=== PATIENT | female | born 1955 | race African-American/Black ===

== ENCOUNTER 2018-05-09 14:50 | Inpatient (IN) | payer BC ==
[2018-05-09 15:34] LABS: POC GLUCOSE 101 mg/dL (70-99)
[2018-05-09] MEDS: IV NORMAL SALINE 1000ML BAG 1,000 ML IV ×2 (15:45→21:12)
[2018-05-09 16:29] LABS: ADD MAN DIFF? NO
[2018-05-09 16:39] LABS: BASO % 0 % (0-3); EOS # 0.1 x10^3/uL (0.0-0.7); EOS % 2 % (0-3); HEMATOCRIT 38.6 % (36.0-47.0); HEMOGLOBIN 12.7 g/dL (12.0-15.5); LYMPH # 2.5 x10^3/uL (1.0-4.8); LYMPH % 45 % (24-48); MEAN CORPUSCULAR HEMOGLOBIN 30 pg (25-35); MEAN CORPUSCULAR HGB CONC 33 g/dL (31-37); MEAN CORPUSCULAR VOLUME 91 fL (79-100); MONO # 0.5 x10^3/uL (0.0-1.1); MONO % 9 % (0-9); NEUT # 2.4 x10^3uL (1.8-7.7); NEUT % 44 % (31-73); PLATELET COUNT 224 x10^3/uL (140-400); RED BLOOD COUNT 4.27 x10^6/uL (3.50-5.40); RED CELL DISTRIBUTION WIDTH 14.2 % (11.5-14.5); WHITE BLOOD COUNT 5.5 x10^3/uL (4.0-11.0)
[2018-05-09 16:43] LABS: ANION GAP 5 (6-14); BLOOD UREA NITROGEN 18 mg/dL (7-20); BUN/CREATININE RATIO 26 (6-20); CALCIUM 8.4 mg/dL (8.5-10.1); CARBON DIOXIDE 32 mmol/L (21-32); CHLORIDE 105 mmol/L (98-107); CREATININE 0.7 mg/dL (0.6-1.0); GFR 101.9; GLUCOSE 96 mg/dL (70-99); POTASSIUM 3.8 mmol/L (3.5-5.1); SODIUM 142 mmol/L (136-145)
[2018-05-09 16:47] LABS: ALBUMIN 3.4 g/dL (3.4-5.0); ALBUMIN/GLOBULIN RATIO 1.1 (1.0-1.7); ALK PHOS 83 U/L (46-116); ALT (SGPT) 22 U/L (14-59); AST (SGOT) 20 U/L (15-37); LIPASE 201 U/L (73-393); MAGNESIUM 2.1 mg/dL (1.8-2.4); TOTAL BILIRUBIN 0.4 mg/dL (0.2-1.0); TOTAL PROTEIN 6.5 g/dL (6.4-8.2)
[2018-05-09 16:49] LABS: LACTIC ACID 0.8 mmol/L (0.4-2.0)
[2018-05-09 16:51] LABS: TROPONINI < 0.017 ng/mL (0.000-0.055)
[2018-05-09 16:55] LABS: CKMB INDEX 0.6 % (0-4); CKMB MASS 2.2 ng/mL (0.0-3.6); CREATINE KINASE 339 U/L (26-192)
[2018-05-09] MEDS: FAMOTIDINE 20 MG TABLET. PO (17:58)
[2018-05-09 18:19] LABS: BILIRUBIN,URINE NEGATIVE (NEG); CLARITY,URINE CLEAR; COLOR,URINE YELLOW; GLUCOSE,URINE NEGATIVE (NEG); NITRITE,URINE NEGATIVE (NEG); PROTEIN,URINE NEGATIVE (NEG-TRACE)
[2018-05-09 18:31] LABS: BACTERIA,URINE 0 /HPF (0-FEW); RBC,URINE 0 /HPF (0-2); SQUAMOUS EPITHELIAL CELL,UR FEW /LPF; WBC,URINE 0 /HPF (0-4)
[2018-05-09] MEDS: ONDANSETRON ODT 4 MG TAB.RAPDIS. PO (18:44)
[2018-05-09] MEDS: ASPIRIN ENTERIC COATED 325 MG TABLET.DR. PO (18:44)
[2018-05-09] MEDS: KETOROLAC 30 MG/ML INJ. IV (21:12)
[2018-05-09 21:59] LABS: TROPONINI < 0.017 ng/mL (0.000-0.055)
[2018-05-10 01:49] LABS: TROPONINI < 0.017 ng/mL (0.000-0.055)
[2018-05-10] MEDS: KETOROLAC 30 MG/ML INJ. IV (08:50)
[2018-05-10 10:33] LABS: CREATINE KINASE 261 U/L (26-192)
[2018-05-10] MEDS: IV NORMAL SALINE 1000ML BAG 1,000 ML IV (10:35)
== END 2018-05-10 15:37 | disposition home or self-care (01) | DRG 558 ==
LOC: ER 14:50 → 2 SOUTH 18:45
PROVIDERS: Internal Medicine
DX: M62.82 Rhabdomyolysis (principal); T67.5XXA Heat exhaustion, unspecified, initial encounter; I69.344 Monoplegia of lower limb following cerebral infarction affecting left non-dominant side; J44.9 Chronic obstructive pulmonary disease, unspecified; E86.0 Dehydration; E83.51 Hypocalcemia; R26.9 Unspecified abnormalities of gait and mobility; X30.XXXA Exposure to excessive natural heat, initial encounter; Y93.89 Activity, other specified; Y92.89 Other specified places as the place of occurrence of the external cause; Y99.8 Other external cause status; Z82.49 Family history of ischemic heart disease and other diseases of the circulatory system; Z90.710 Acquired absence of both cervix and uterus; Z87.891 Personal history of nicotine dependence; Z88.6 Allergy status to analgesic agent
CPT/HCPCS: 36415; 70450; 71046; 80053; 81001; 82550; 82553; 82962; 83605; 83690; 83735; 84484; 85025; 93005; 96360; 99285; 99285-25; J1885; J7030; Q0162

== ENCOUNTER → 2018-10-18 | Outpatient (CLI) | payer SELFPAY ==
[2018-05-10 11:00] VITALS: BP 131/59
[~2018-10-18] MED LIST: KETO10TA PO
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
== END | disposition home or self-care (01) ==
LOC: RAD 09:23
PROVIDERS: ATTEND Nurse Practitioner
DX: M47.816 Spondylosis without myelopathy or radiculopathy, lumbar region (principal); M47.817 Spondylosis without myelopathy or radiculopathy, lumbosacral region; M41.86 Other forms of scoliosis, lumbar region; M48.061 Spinal stenosis, lumbar region without neurogenic claudication; M12.88 Other specific arthropathies, not elsewhere classified, other specified site
CPT/HCPCS: 72100

== ENCOUNTER 2021-03-15 22:49 | Emergency (ER) | payer MEDICARE, OTHER ==
[~2021-03-15] VITALS: Ht 165.1 cm; Wt 77.2 kg
--- NOTE | 2021-03-16 02:41 | PHYS DOC ---
Past Medical History Past Medical History: COPD, CVA, Migraines Past Surgical History: Hysterectomy Additional Past Surgical Histo: RIGHT KNEE ARTHROSCOPY, BILAT ROTATOR CUFF REP AIR, RIGHT CARPAL TUNNEL Smoking Status: Current Every Day Smoker Alcohol Use: None Drug Use: None General Adult EDM: Chief Complaint: FACE PROBLEM HPI: HPI: Patient is a 65yo female presenting for skin problems. Patient reports x1 week f acial skin problems. Reports a "blackhead" that formed 1 week prior without known inciting event or trauma. Nothing known makes better or worse. Patient has tried topical triple antibiotic ointment without relief. There is no pain. Presents due to fear of "it getting into my eye". No lightheadedness, dizziness, vision changes or other concerning findings. Review of Systems: Review of Systems: Fourteen body systems of review of systems have been reviewed. See HPI for pertinent positives and negative responses, other zapien all other systems are negative, non-pertinent or non-contributory Heart Score: C/O Chest Pain: No Risk Factors: Risk Factors: DM, Current or recent (<one month) smoker, HTN, HLP, family history of CAD, obesity. Risk Scores: Score 0 - 3: 2.5% MACE over next 6 weeks - Discharge Home Score 4 - 6: 20.3% MACE over next 6 weeks - Admit for Clinical Observation Score 7 - 10: 72.7% MACE over next 6 weeks - Early Invasive Strategies Allergies: Allergies: Allergies Coded Allergies Type Severity Reaction Last Updated Verified aspirin Adverse Reaction Unknown NAUSEA 03/16/21 Yes Physical Exam: PE: Constitutional: Well developed, well nourished, no acute distress, non-toxic appearance. HENT: Normocephalic, atraumatic, bilateral external ears normal, oropharynx moist, no oral exudates, nose normal. Well-appearing comedone/blackhead present in-between eyebrows. Minimal expressible exudate expressed likely indicating early stages of disease without any other concerning signs of potential infection Eyes: PERRLA, EOMI, conjunctiva normal, no discharge. Neck: Normal range of motion, no tenderness, supple, no stridor. Cardiovascular: Heart rate regular, sinus rhythm, no murmurs rubs or gallops Lungs & Thorax: Bilateral breath sounds clear to auscultation Abdomen: Bowel sounds normal, soft, no tenderness, no masses, no pulsatile masses. Nonsurgical abdomen, no peritoneal signs Skin: Warm, dry, no erythema, no rash. Back: No tenderness, no CVA tenderness. Extremities: No tenderness, no cyanosis, no clubbing, ROM intact, no edema. Neurologic: Alert and oriented X 3, CN 2-12 intact, normal motor & sensory function, no focal deficits noted. Psychologic: Affect normal, judgement normal, mood normal. Current Patient Data: Vital Signs: Vital Signs Date Time Temp Pulse Resp B/P (MAP) Pulse Ox O2 Delivery O2 Flow Rate FiO2 03/15/21 22:53 97.8 105 18 143/74 (97) 95 Room Air 97.8 EKG: EKG: [] Radiology/Procedures: Radiology/Procedures: [] Course & Med Decision Making: Course & Med Decision Making VSS, HPI and PE unremarkable. Discussed most likely diagnosis of comedone. I tried expressing this but likely too early in disease to fully express. In a sensitive area, no indication for invasive removal or surgical incision etc Advised continued supportive care and PCP with potential need for dermatology follow-up. This is not an emergency. Strict return precautions discussed with good understanding by patient. Dragon Disclaimer: Dragon Disclaimer: This electronic medical record was generated, in whole or in part, using a voice recognition dictation system. Departure Departure Impression: Primary Impression: Comedone Disposition: 01 HOME / SELF CARE / HOMELESS Condition: STABLE Referrals: GURINDER WREN MD (PCP) Additional Instructions: As discussed, your vitals and physical exam were unremarkable for any emergent or surgical issues. As disclose, your most likely diagnosis is a symptomatic comedone. This is otherwise referred to as a blackhead. I attempted to aspirate/extract this but was unsuccessful. It is likely too early in its disease course to have been expelled without aggressive intervention. As such, it was recommended that you continue supportive care practices such as good facial hygiene cleaning face with soap at least once or twice a day and applying warm compresses to area in question at least once or twice a day. As discussed, it is advised that you seek close primary care physician reevaluation to ensure symptomatic improvement. If these do not improve, there might be indication for dermatology referral. If any concerning signs or symptoms present prior to outpatient follow-up please do not hesitate to come back for repeat evaluation. It was a pleasure to take care of you and I wish you the best going forward LULA PRINGLE DO March 16, 2021 02:41
[2021-03-16 02:44] VITALS: BP 152/98
== END 2021-03-16 02:57 | disposition home or self-care (01) ==
LOC: ER 22:49
DX: L98.8 Other specified disorders of the skin and subcutaneous tissue (principal); J44.9 Chronic obstructive pulmonary disease, unspecified; G43.909 Migraine, unspecified, not intractable, without status migrainosus; F17.200 Nicotine dependence, unspecified, uncomplicated; Z86.73 Personal history of transient ischemic attack (TIA), and cerebral infarction without residual deficits; Z88.6 Allergy status to analgesic agent
CPT/HCPCS: 99281

== ENCOUNTER 2022-03-08 21:30 | Inpatient (IN) | payer MEDICARE ==
[~2022-03-08] VITALS: Ht 165.1 cm; Wt 72.7 kg
[~2022-03-08 21:30] MED LIST changes: +ASPI-886 PO; +ATOR40TA59 PO; +CARV3.1210 PO; +CYCL10TA19 PO; +DICY10CA3 PO; +Diclofenac Sodium TP; +HYDR-3070 PO; +HYDR12.58 PO; +METF-658 PO; +OMEP10CA4 PO; +VALIUM10 MG PO
[2022-03-08] MEDS ORDERED: methylPREDNISolone SOD SUCC PF 125 MG/2 ML VIAL. IV ONE (21:45)
[2022-03-08] MEDS ORDERED: IPRATRPIUM/ALBUTEROL 0.5/2.5MG 3 ML NEBU. NEB ONE (21:45)
[2022-03-08 21:57] LABS: BASO % 0 % (0-3); EOS % 0 % (0-3); HEMATOCRIT 34.7 % (36.0-47.0); HEMOGLOBIN 11.5 g/dL (12.0-15.5); LYMPH # 0.6 x10^3/uL (1.0-4.8); LYMPH % 9 % (24-48); MEAN CORPUSCULAR HEMOGLOBIN 29 pg (25-35); MEAN CORPUSCULAR HGB CONC 33 g/dL (31-37); MEAN CORPUSCULAR VOLUME 87 fL (79-100); MONO # 0.2 x10^3/uL (0.0-1.1); MONO % 3 % (0-9); NEUT # 6.5 x10^3/uL (1.8-7.7); NEUT % 88 % (31-73); PLATELET COUNT 165 x10^3/uL (140-400); RED CELL DISTRIBUTION WIDTH 13.8 % (11.5-14.5); WHITE BLOOD COUNT 7.4 x10^3/uL (4.0-11.0)
--- NOTE | 2022-03-08 22:00 | PHYS DOC ---
Past Medical History Past Medical History: COPD, CVA, Migraines Past Surgical History: Other Additional Past Surgical Histo: MULTIPLE WORK RELATED ORTHO SX Smoking Status: Current Every Day Smoker Alcohol Use: None Drug Use: None Adult General Chief Complaint Chief Complaint: SHORTNESS OF BREATH HPI HPI Patient is a 66 year old female presenting to the emergency department for evaluation of shortness of breath that has been worsening over the past several days. Patient does smoke cigarettes on a regular basis and has been diagnosed with COPD and says that she has had a brownish productive sputum and has had subjective fevers as well. She denies any pain nausea vomiting or other systemic symptoms. She does feel generally weak and tired. She is not on any antibiotics or steroids at this time. She appears to be dyspneic but nontoxic. Reportedly her oxygen saturation was 87% on room air for EMS but they did not give her any breathing treatments or steroids. Review of Systems Review of Systems Constitutional: + fever, chills [] Eyes: Denies change in visual acuity, redness, or eye pain [] HENT: Denies nasal congestion or sore throat [] Respiratory: + cough, shortness of breath [] Cardiovascular: No additional information not addressed in HPI [] GI: Denies abdominal pain, nausea, vomiting, bloody stools or diarrhea [] : Denies dysuria or hematuria [] Musculoskeletal: Denies back pain or joint pain [] Integument: Denies rash or skin lesions [] Neurologic: Denies headache, focal weakness or sensory changes [] All other systems were reviewed and found to be within normal limits, except as documented in this note. Current Medications Current Medications Current Medications Medications (Trade) Dose Ordered Sig/Jd Start Time Stop Time Status Last Admin Dose Admin Albuterol/ Ipratropium (Duoneb) 3 ml 1X ONCE 03/08/22 21:45 03/08/22 21:46 DC 03/08/22 22:04 3 ML Azithromycin 500 mg/Sodium Chloride 250 ml @ 250 mls/hr ONCE ONCE 03/08/22 22:30 03/08/22 23:29 Ceftriaxone Sodium (Rocephin) 2 gm 1X ONCE 03/08/22 22:15 03/08/22 22:16 DC Methylprednisolone Sodium Succinate (SOLU-Medrol 125MG VIAL) 125 mg 1X ONCE 03/08/22 21:45 03/08/22 21:46 DC 03/08/22 21:59 125 MG Ondansetron HCl (Zofran) 4 mg PRN Q8HRS PRN 03/08/22 22:30 03/09/22 22:29 Potassium Chloride/Sodium Chloride 1,000 ml @ 125 mls/hr Q8H ONCE 03/08/22 22:30 03/09/22 06:29 UNV Potassium Chloride (Klor-Con) 40 meq 1X ONCE 03/08/22 22:30 03/08/22 22:31 UNV Allergies Allergies Allergies Coded Allergies Type Severity Reaction Last Updated Verified No Known Drug Allergies 08/17/21 No Physical Exam Physical Exam Constitutional: Well developed, well nourished, no acute distress, non-toxic appearance. [] HENT: Normocephalic, atraumatic, bilateral external ears normal, oropharynx moist, no oral exudates, nose normal. [] Eyes: PERRLA, EOMI, conjunctiva normal, no discharge. [] Neck: Normal range of motion, no tenderness, supple, no stridor. [] Cardiovascular:Heart rate tachycardic with regular rhythm, no murmur [] Lungs & Thorax: Bilateral breath sounds diminished with inspiratory expiratory wheezing Abdomen: Bowel sounds normal, soft, no tenderness, no masses, no pulsatile masses. [] Skin: Warm, dry, no erythema, no rash. [] Back: No tenderness, no CVA tenderness. [] Extremities: No tenderness, no cyanosis, no clubbing, ROM intact, no edema. [] Neurologic: Alert and oriented X 3, normal motor function, normal sensory function, no focal deficits noted. [] Current Patient Data Vital Signs Vital Signs Date Time Temp Pulse Resp B/P (MAP) Pulse Ox O2 Delivery O2 Flow Rate FiO2 03/08/22 22:04 95 Nasal Cannula 2.0 03/08/22 21:30 99.1 128 35 138/61 (86) 99.1 Lab Values Laboratory Tests Test 03/08/22 21:45 White Blood Count 7.4 x10^3/uL (4.0-11.0) Red Blood Count 4.00 x10^6/uL (3.50-5.40) Hemoglobin 11.5 g/dL (12.0-15.5) L Hematocrit 34.7 % (36.0-47.0) L Mean Corpuscular Volume 87 fL (79-100) Mean Corpuscular Hemoglobin 29 pg (25-35) Mean Corpuscular Hemoglobin Concent 33 g/dL (31-37) Red Cell Distribution Width 13.8 % (11.5-14.5) Platelet Count 165 x10^3/uL (140-400) Neutrophils (%) (Auto) 88 % (31-73) H Lymphocytes (%) (Auto) 9 % (24-48) L Monocytes (%) (Auto) 3 % (0-9) Eosinophils (%) (Auto) 0 % (0-3) Basophils (%) (Auto) 0 % (0-3) Neutrophils # (Auto) 6.5 x10^3/uL (1.8-7.7) Lymphocytes # (Auto) 0.6 x10^3/uL (1.0-4.8) L Monocytes # (Auto) 0.2 x10^3/uL (0.0-1.1) Eosinophils # (Auto) 0.0 x10^3/uL (0.0-0.7) Basophils # (Auto) 0.0 x10^3/uL (0.0-0.2) Platelet Estimate Pending Sodium Level 137 mmol/L (136-145) Potassium Level 2.8 mmol/L (3.5-5.1) *L Chloride Level 98 mmol/L (98-107) Carbon Dioxide Level 28 mmol/L (21-32) Anion Gap 11 (6-14) Blood Urea Nitrogen 31 mg/dL (7-20) H Creatinine 1.1 mg/dL (0.6-1.0) H Estimated GFR (Cockcroft-Gault) 59.8 BUN/Creatinine Ratio 28 (6-20) H Glucose Level 120 mg/dL (70-99) H Lactic Acid Level 1.3 mmol/L (0.4-2.0) Calcium Level 8.7 mg/dL (8.5-10.1) Total Bilirubin 1.1 mg/dL (0.2-1.0) H Aspartate Amino Transferase (AST) 21 U/L (15-37) Alanine Aminotransferase (ALT) 22 U/L (14-59) Alkaline Phosphatase 79 U/L (46-116) Troponin I High Sensitivity 54 ng/L (4-50) H TC-Exu-S-Type Natriuretic Peptide 328 pg/mL (0-124) H Total Protein 7.2 g/dL (6.4-8.2) Albumin 2.7 g/dL (3.4-5.0) L Albumin/Globulin Ratio 0.6 (1.0-1.7) L Laboratory Tests 03/08/22 21:45 Laboratory Tests 03/08/22 21:45 EKG EKG Sinus tachycardia at 130 bpm with normal axis no deviation no ST elevation or depression with normal T waves. Radiology/Procedures Radiology/Procedures [] Course & Med Decision Making Course & Med Decision Making Patient appears to have a dense lobar pneumonia in the right lower lobe of her lung. She does meet sepsis criteria with tachycardia and tachypnea but she did appear to improve after breathing treatments and steroids. She is on 2 L of oxygen with a saturation in the mid 90s. Patient has been started on antibi otics for community-acquired pneumonia. Given her sepsis diagnosis and her presenting symptoms and abnormal vital signs she will be admitted to the hospital in guarded condition. She does not meet severe sepsis criteria as she has a MAP above 65. Dragon Disclaimer Dragon Disclaimer This electronic medical record was generated, in whole or in part, using a voice recognition dictation system. Departure Departure Impression: Primary Impression: Respiratory failure with hypoxia Additional Impressions: Hypokalemia Pneumonia Sepsis Disposition: ADMITTED INPATIENT Admitting Physician: JEANNETTE BECERRA) Condition: GUARDED Referrals: GURINDER WREN MD (PCP) Problem Qualifiers Primary Impression: Respiratory failure with hypoxia Chronicity: acute Qualified Codes: J96.01 - Acute respiratory failure with hypoxia Additional Impressions: Pneumonia Pneumonia type: due to unspecified organism Laterality: right Lung location: lower lobe of lung Qualified Codes: J18.9 - Pneumonia, unspecified organism MEL GARNICA DO March 08, 2022 22:00
[2022-03-08] MEDS ORDERED: cefTRIAXone IV Push 2 GM VIAL. IVP ONE (22:15)
[2022-03-08 22:20] LABS: ALBUMIN 2.7 g/dL (3.4-5.0); ALBUMIN/GLOBULIN RATIO 0.6 (1.0-1.7); CALCIUM 8.7 mg/dL (8.5-10.1); CREATININE 1.1 mg/dL (0.6-1.0); GFR 59.8; TOTAL BILIRUBIN 1.1 mg/dL (0.2-1.0); TOTAL PROTEIN 7.2 g/dL (6.4-8.2)
[2022-03-08 22:23] LABS: POTASSIUM 2.8 mmol/L (3.5-5.1)
[2022-03-08] MEDS ORDERED: POTASSIUM CHLORIDE 20 MEQ TABLET.ER. PO ONE (22:30)
[2022-03-08] MEDS ORDERED: ONDANSETRON PF 4 MG/2 ML VIAL. IVP PRN (22:30)
[2022-03-08] MEDS ORDERED: AZITHROMYCIN 500 MG in IV NORMAL SALINE 250ML 250 ML IV ONE (22:30)
[2022-03-08] MEDS ORDERED: POTASSIUM CL 40MEQ IN 0.9%NACL 1,000 ML IV ONE (22:45)
[2022-03-08 22:54] LABS: % BANDS 7 % (0-9); % LYMPHS 10 % (24-48); % MONOS 5 % (0-10); % SEGS 78 % (35-66); PLT ESTIMATE ADEQUATE (ADEQUATE); TOXIC GRANULATION SLIGHT; TOXIC VACUOLATION SLIGHT
--- NOTE | 2022-03-08 23:14 | RAD ---
EXAM: AP View of the chest DATE: 03/08/2022 10:01 PM INDICATION: Reason: cough, soa / Spl. Instructions: / History: COMPARISON: 08/17/2021 FINDINGS: The heart is not enlarged. Mediastinal and hilar contours are normal. Dense airspace opacities right lower lung likely consolidative process such as pneumonia. No pleural effusion or pneumothorax. IMPRESSION: Dense airspace opacities right lower lung likely consolidative process such as pneumonia. Electronically signed by: Ritesh Devi MD (03/08/2022 11:11 PM) MARTHA
[2022-03-08 23:40] LABS: INFLUENZA A PATIENT NEGATIVE (NEGATIVE); INFLUENZA B PATIENT NEGATIVE (NEGATIVE)
--- NOTE | 2022-03-09 01:31 | EKG ---
[facility] [address] [place] [address] Test Date: 2022-03-08 Test Time: 21:42:03 Pat Name: GRISELDA KENNEY Department: Room: [facility] Gender: F [employer] Research Specialist: [id number] : 1955 Requested By: MEL GARNICA Order Number: [id number] Reading MD: Ankit Gonzalez Measurements Intervals [place] Rate: 130 P: [place]: QRS: 154 QRSD: 90 T: -90 QT: 344 QTc: 513 Interpretive Statements SINUS TACHYCARDIA VENTRICULAR PREMATURE COMPLEX(ES) Electronically Signed On 03-10-2022 14:49:24 CDT by Ankit Gonzalez
[2022-03-09 03:00] VITALS: BP 115/64
[2022-03-09 07:00] VITALS: BP 95/52
[2022-03-09 07:30] LABS: BASO % 0 % (0-3); EOS % 0 % (0-3); HEMATOCRIT 33.2 % (36.0-47.0); LYMPH # 0.5 x10^3/uL (1.0-4.8); LYMPH % 7 % (24-48); MEAN CORPUSCULAR HEMOGLOBIN 29 pg (25-35); MEAN CORPUSCULAR HGB CONC 33 g/dL (31-37); MEAN CORPUSCULAR VOLUME 87 fL (79-100); MONO # 0.3 x10^3/uL (0.0-1.1); MONO % 4 % (0-9); NEUT # 6.6 x10^3/uL (1.8-7.7); NEUT % 89 % (31-73); PLATELET COUNT 161 x10^3/uL (140-400); RED BLOOD COUNT 3.82 x10^6/uL (3.50-5.40); RED CELL DISTRIBUTION WIDTH 14.2 % (11.5-14.5); WHITE BLOOD COUNT 7.4 x10^3/uL (4.0-11.0)
[2022-03-09 07:50] LABS: CALCIUM 8.1 mg/dL (8.5-10.1); CREATININE 0.8 mg/dL (0.6-1.0); GFR 86.3; POTASSIUM 4.1 mmol/L (3.5-5.1)
[2022-03-09] MEDS ORDERED: AZITHROMYCIN 500 MG in IV NORMAL SALINE 250ML 250 ML IV SCH (08:15)
[2022-03-09] MEDS ORDERED: diphenhydrAMINE HCL 25 MG CAPSULE PO PRN ×2 (08:15)
[2022-03-09] MEDS ORDERED: ONDANSETRON PF 4 MG/2 ML VIAL. IVP PRN (08:15)
[2022-03-09] MEDS ORDERED: DOCUSATE SODIUM 100 MG CAPSULE. PO PRN (08:15)
[2022-03-09] MEDS ORDERED: DEXTROSE 50% 25 GM / 50ML DISP.SYRIN. IV PRN (08:15)
[2022-03-09] MEDS ORDERED: SENNOSIDES 8.6 MG TABLET PO PRN (08:15)
[2022-03-09] MEDS ORDERED: diphenhydrAMINE 50 MG/ML VIAL IVP PRN (08:15)
[2022-03-09] MEDS ORDERED: ZOLPIDEM 5 MG TABLET. PO PRN (08:15)
[2022-03-09] MEDS ORDERED: LORazepam 0.5 MG TABLET PO PRN (08:15)
[2022-03-09] MEDS ORDERED: PROCHLORPERAZINE 10 MG/2 ML VIAL. IV PRN (08:15)
--- NOTE | 2022-03-09 08:16 | PDOC1 ---
History and Physical Date of Service: DOS: DATE: 03/09/22 TIME: 08:08 Chief Complaint: Chief Complain: Shortness of breath History of Present Illness: HPI: 66-year-old female with past medical history of COPD, CVA and migraines who comes in with shortness of breath that has been worsening for the past several days. Patient does smoke regularly at about a pack per day but she decreased to about 2 cigarettes/day and was not unable to tolerate her cigarettes anymore because she was having shortness of breath and productive cough. She does endorse brownish phlegm. Denies any nausea vomiting, fevers, chest pain, abdominal pain, nausea vomiting, dysuria, hematuria. Endorses generalized weakness and fatigue. She does not appear toxic but she does have short of breath while talking. Patient reportedly was found to have 87% when EMS arrived. She was not giving any steroids or treatments at the time. Past Medical/Surgical History: PMH/PSH: Past Medical History: COPD, CVA, Migraines Past Surgical History: MULTIPLE WORK RELATED ORTHO SX Allergies: Allergies: Coded Allergies: No Known Drug Allergies (Unverified , 08/17/21) Family History: Family History: Reviewed with no relative findings in the chart Social History: Social History: Smoking Status: Current Every Day Smoker Alcohol Use: None Drug Use: None Current Medications: Current Medications Current Medications Albuterol/ Ipratropium (Duoneb) 3 ml 1X ONCE NEB Last administered on 03/08/22at 22:04; Start 03/08/22 at 21:45; Stop 03/08/22 at 21:46; Status DC Methylprednisolone Sodium Succinate (SOLU-Medrol 125MG VIAL) 125 mg 1X ONCE IV Last administered on 03/08/22at 21:59; Start 03/08/22 at 21:45; Stop 03/08/22 at 21:46; Status DC Ceftriaxone Sodium (Rocephin) 2 gm 1X ONCE IVP Last administered on 03/08/22at 22:52; Start 03/08/22 at 22:15; Stop 03/08/22 at 22:16; Status DC Azithromycin 500 mg/Sodium Chloride 250 ml @ 250 mls/hr QHS IV ; Start 03/09/22 at 21:00 Azithromycin 500 mg/Sodium Chloride 250 ml @ 250 mls/hr ONCE ONCE IV Last administered on 03/08/22at 23:00; Start 03/08/22 at 22:30; Stop 03/08/22 at 23:29; Status DC Ondansetron HCl (Zofran) 4 mg PRN Q8HRS PRN IVP NAUSEA/VOMITING; Start 03/08/22 at 22:30; Stop 03/09/22 at 22:29 Potassium Chloride (Klor-Con) 40 meq 1X ONCE PO Last administered on 03/08/22at 23:06; Start 03/08/22 at 22:30; Stop 03/08/22 at 22:31; Status DC Potassium Chloride/Sodium Chloride 1,000 ml @ 125 mls/hr Q8H ONCE IV Last administered on 03/08/22at 23:12; Start 03/08/22 at 22:45; Stop 03/09/22 at 06:44; Status DC Active Scripts Active [Diclofenac Sodium] 100 GM Gel..gram. 1 King TP BID 14 Days Carvedilol (Carvedilol) 3.125 Mg Tablet 3.125 Mg PO BIDWMEALS 30 Days Aspirin Ec (Aspirin) 81 Mg Tablet. 81 Mg PO DAILYWBKFT 30 Days Reported Omeprazole 10 Mg Capsule. 10 Mg PO DAILY Cyclobenzaprine Hcl 10 Mg Tablet 1 Tab PO PRN BID PRN Dicyclomine Hcl 10 Mg Capsule 1 Cap PO PRN Q6HRS Atorvastatin Calcium 40 Mg Tablet 1 Tab PO DAILY Hydrochlorothiazide Tablet (Hydrochlorothiazide) 12.5 Mg Tablet 12.5 Mg PO DAILY Hydrocodone-Apap 7.5-300 (Hydrocodone Bit/Acetaminophen) 1 Each Tablet 1 Tab PO PRN TID PRN MDD 3 Tablet(s) 30 Days Metformin Hcl Er (Metformin Hcl) 500 Mg Tab.er.24h 500 Mg PO DAILYWBKFT ROS: Review of Systems Review of System REVIEW OF SYSTEMS: GENERAL: Denies weakness SKIN: No bruising, hair changes or rashes. EYES: No blurred, double or loss of vision. NOSE AND THROAT: No history of nosebleeds, hoarseness or sore throat. HEART: No history of palpitations, chest pain or shortness of breath on exertion. LUNGS: Denies cough, hemoptysis, wheezing or shortness of breath. GASTROINTESTINAL: Denies changes in appetite, nausea, vomiting, diarrhea or constipation. GENITOURINARY: No history of frequency, urgency, hesitancy or nocturia. NEUROLOGIC: Denies history of numbness, tingling, or tremor. PSYCHIATRIC: No history of panic, anxiety or depression. ENDOCRINE: No history of heat or cold intolerance, polyuria or polydipsia. EXTREMITIES: Denies joint pain, pain on walking or stiffness. Physical Exam: Vital Signs: Vital Signs Date Time Temp Pulse Resp B/P (MAP) Pulse Ox O2 Delivery O2 Flow Rate FiO2 03/09/22 07:25 Nasal Cannula 2.0 03/09/22 07:00 97.7 98 18 95/52 (66) 94 97.7 Physcial Exam: General: Well developed, well nourished, no acute distress, well appearing HEENT: Pupils equally round and reactive to light, EOMI, no discharge, normal conjunctiva Neck: Supple, no nuchal rigidity, no JVD, trachea midline, no tenderness Cardiac: RRR, no murmurs, no gallops, no rubs Chest/Lungs: Diminished bilaterally to auscultation no wheeze, no rhonchi, no crackles Abdomen: soft, non-distended, no guarding, no peritoneal signs, non-tender Back: Kyphosis Extremities: no edema, pulses intact, non-tender,capillary refill <3 sec bila teral upper and lower extremities, Neuro: Alert and oriented x 4, no focal deficits, normal speech Labs: Labs: Laboratory Tests Test 03/08/22 21:45 03/08/22 23:18 03/09/22 00:12 03/09/22 06:55 White Blood Count 7.4 x10^3/uL (4.0-11.0) 7.4 x10^3/uL (4.0-11.0) Red Blood Count 4.00 x10^6/uL (3.50-5.40) 3.82 x10^6/uL (3.50-5.40) Hemoglobin 11.5 g/dL (12.0-15.5) 11.0 g/dL (12.0-15.5) Hematocrit 34.7 % (36.0-47.0) 33.2 % (36.0-47.0) Mean Corpuscular Volume 87 fL (79-100) 87 fL (79-100) Mean Corpuscular Hemoglobin 29 pg (25-35) 29 pg (25-35) Mean Corpuscular Hemoglobin Concent 33 g/dL (31-37) 33 g/dL (31-37) Red Cell Distribution Width 13.8 % (11.5-14.5) 14.2 % (11.5-14.5) Platelet Count 165 x10^3/uL (140-400) 161 x10^3/uL (140-400) Neutrophils (%) (Auto) 88 % (31-73) 89 % (31-73) Lymphocytes (%) (Auto) 9 % (24-48) 7 % (24-48) Monocytes (%) (Auto) 3 % (0-9) 4 % (0-9) Eosinophils (%) (Auto) 0 % (0-3) 0 % (0-3) Basophils (%) (Auto) 0 % (0-3) 0 % (0-3) Neutrophils # (Auto) 6.5 x10^3/uL (1.8-7.7) 6.6 x10^3/uL (1.8-7.7) Lymphocytes # (Auto) 0.6 x10^3/uL (1.0-4.8) 0.5 x10^3/uL (1.0-4.8) Monocytes # (Auto) 0.2 x10^3/uL (0.0-1.1) 0.3 x10^3/uL (0.0-1.1) Eosinophils # (Auto) 0.0 x10^3/uL (0.0-0.7) 0.0 x10^3/uL (0.0-0.7) Basophils # (Auto) 0.0 x10^3/uL (0.0-0.2) 0.0 x10^3/uL (0.0-0.2) Segmented Neutrophils % 78 % (35-66) Band Neutrophils % 7 % (0-9) Lymphocytes % 10 % (24-48) Monocytes % 5 % (0-10) Toxic Granulation Slight Toxic Vacuolation Slight Dohle Bodies Few Platelet Estimate Adequate (ADEQUATE) Sodium Level 137 mmol/L (136-145) 139 mmol/L (136-145) Potassium Level 2.8 mmol/L (3.5-5.1) 4.1 mmol/L (3.5-5.1) Chloride Level 98 mmol/L (98-107) 103 mmol/L (98-107) Carbon Dioxide Level 28 mmol/L (21-32) 28 mmol/L (21-32) Anion Gap 11 (6-14) 8 (6-14) Blood Urea Nitrogen 31 mg/dL (7-20) 23 mg/dL (7-20) Creatinine 1.1 mg/dL (0.6-1.0) 0.8 mg/dL (0.6-1.0) Estimated GFR (Cockcroft-Gault) 59.8 86.3 BUN/Creatinine Ratio 28 (6-20) Glucose Level 120 mg/dL (70-99) 158 mg/dL (70-99) Lactic Acid Level 1.3 mmol/L (0.4-2.0) Calcium Level 8.7 mg/dL (8.5-10.1) 8.1 mg/dL (8.5-10.1) Total Bilirubin 1.1 mg/dL (0.2-1.0) Aspartate Amino Transf (AST/SGOT) 21 U/L (15-37) Alanine Aminotransferase (ALT/SGPT) 22 U/L (14-59) Alkaline Phosphatase 79 U/L (46-116) Troponin I High Sensitivity 54 ng/L (4-50) 53 ng/L (4-50) KQ-Qho-Z-Type Natriuretic Peptide 328 pg/mL (0-124) Total Protein 7.2 g/dL (6.4-8.2) Albumin 2.7 g/dL (3.4-5.0) Albumin/Globulin Ratio 0.6 (1.0-1.7) Influenza Type A Antigen Negative (NEGATIVE) Influenza Type B Antigen Negative (NEGATIVE) SARS-CoV-2 Antigen (Rapid) Negative (NEGATIVE) D-Dimer (Caitlyn) 2.22 ug/mlFEU (0.00-0.50) Laboratory Tests Test 03/08/22 21:45 03/08/22 23:18 03/09/22 00:12 03/09/22 06:55 White Blood Count 7.4 x10^3/uL (4.0-11.0) 7.4 x10^3/uL (4.0-11.0) Red Blood Count 4.00 x10^6/uL (3.50-5.40) 3.82 x10^6/uL (3.50-5.40) Hemoglobin 11.5 g/dL (12.0-15.5) 11.0 g/dL (12.0-15.5) Hematocrit 34.7 % (36.0-47.0) 33.2 % (36.0-47.0) Mean Corpuscular Volume 87 fL (79-100) 87 fL (79-100) Mean Corpuscular Hemoglobin 29 pg (25-35) 29 pg (25-35) Mean Corpuscular Hemoglobin Concent 33 g/dL (31-37) 33 g/dL (31-37) Red Cell Distribution Width 13.8 % (11.5-14.5) 14.2 % (11.5-14.5) Platelet Count 165 x10^3/uL (140-400) 161 x10^3/uL (140-400) Neutrophils (%) (Auto) 88 % (31-73) 89 % (31-73) Lymphocytes (%) (Auto) 9 % (24-48) 7 % (24-48) Monocytes (%) (Auto) 3 % (0-9) 4 % (0-9) Eosinophils (%) (Auto) 0 % (0-3) 0 % (0-3) Basophils (%) (Auto) 0 % (0-3) 0 % (0-3) Neutrophils # (Auto) 6.5 x10^3/uL (1.8-7.7) 6.6 x10^3/uL (1.8-7.7) Lymphocytes # (Auto) 0.6 x10^3/uL (1.0-4.8) 0.5 x10^3/uL (1.0-4.8) Monocytes # (Auto) 0.2 x10^3/uL (0.0-1.1) 0.3 x10^3/uL (0.0-1.1) Eosinophils # (Auto) 0.0 x10^3/uL (0.0-0.7) 0.0 x10^3/uL (0.0-0.7) Basophils # (Auto) 0.0 x10^3/uL (0.0-0.2) 0.0 x10^3/uL (0.0-0.2) Segmented Neutrophils % 78 % (35-66) Band Neutrophils % 7 % (0-9) Lymphocytes % 10 % (24-48) Monocytes % 5 % (0-10) Toxic Granulation Slight Toxic Vacuolation Slight Dohle Bodies Few Platelet Estimate Adequate (ADEQUATE) Sodium Level 137 mmol/L (136-145) 139 mmol/L (136-145) Potassium Level 2.8 mmol/L (3.5-5.1) 4.1 mmol/L (3.5-5.1) Chloride Level 98 mmol/L (98-107) 103 mmol/L (98-107) Carbon Dioxide Level 28 mmol/L (21-32) 28 mmol/L (21-32) Anion Gap 11 (6-14) 8 (6-14) Blood Urea Nitrogen 31 mg/dL (7-20) 23 mg/dL (7-20) Creatinine 1.1 mg/dL (0.6-1.0) 0.8 mg/dL (0.6-1.0) Estimated GFR (Cockcroft-Gault) 59.8 86.3 BUN/Creatinine Ratio 28 (6-20) Glucose Level 120 mg/dL (70-99) 158 mg/dL (70-99) Lactic Acid Level 1.3 mmol/L (0.4-2.0) Calcium Level 8.7 mg/dL (8.5-10.1) 8.1 mg/dL (8.5-10.1) Total Bilirubin 1.1 mg/dL (0.2-1.0) Aspartate Amino Transf (AST/SGOT) 21 U/L (15-37) Alanine Aminotransferase (ALT/SGPT) 22 U/L (14-59) Alkaline Phosphatase 79 U/L (46-116) Troponin I High Sensitivity 54 ng/L (4-50) 53 ng/L (4-50) KY-Rep-O-Type Natriuretic Peptide 328 pg/mL (0-124) Total Protein 7.2 g/dL (6.4-8.2) Albumin 2.7 g/dL (3.4-5.0) Albumin/Globulin Ratio 0.6 (1.0-1.7) Influenza Type A Antigen Negative (NEGATIVE) Influenza Type B Antigen Negative (NEGATIVE) SARS-CoV-2 Antigen (Rapid) Negative (NEGATIVE) D-Dimer (Caitlyn) 2.22 ug/mlFEU (0.00-0.50) Images: Images PROCEDURE: PORTABLE CHEST 1V EXAM: AP View of the chest DATE: 03/08/2022 10:01 PM INDICATION: Reason: cough, soa / Spl. Instructions: / History: COMPARISON: 08/17/2021 FINDINGS: The heart is not enlarged. Mediastinal and hilar contours are normal. Dense airspace opacities right lower lung likely consolidative process such as pneumonia. No pleural effusion or pneumothorax. IMPRESSION: Dense airspace opacities right lower lung likely consolidative process such as pneumonia. Assessment/Plan Assessment/Plan Acute hypoxic respiratory failure Right lower lobe pneumonia, possible gram-negative organisms Severe hypokalemia KILLIAN due to vasomotor nephropathy History of COPD History of CVA Admit to hospitalist service for further management O2 supplementation to maintain O2 saturations between 88 to 92% Continue empiric IV antibiotics Pending MRSA and Legionella urine antigen Pending procalcitonin Lovenox for DVT prophylaxis Cardiac diet CODE STATUS full Discussed with RN and SW Disposition inpatient management as above DPOA: Daughter Justifications for Admission Other Justification LISSY GALVEZ MD March 09, 2022 08:16
[2022-03-09] MEDS: LACTOBACILLUS RHAMNOSUS GG 1 CAPSULE. PO SCH ×2 (10:03→21:39)
[2022-03-09] MEDS: ENOXAPARIN 40 MG/0.4 ML SYRINGE. SQ SCH (10:03)
[2022-03-09] MEDS: IV NORMAL SALINE 1000ML BAG 1,000 ML IV SCH ×2 (10:04→23:15)
[2022-03-09] MEDS ORDERED: PIP/TAZO PER PHARMACY MC PRN (11:15)
[2022-03-09] MEDS ORDERED: CONTRAST GIVEN. MC PRN (11:30)
[2022-03-09] MEDS ORDERED: IOHEXOL 350 MG/ML 100 ML VIAL. IV ONE (11:30)
[2022-03-09] MEDS: IPRATRPIUM/ALBUTEROL 0.5/2.5MG 3 ML NEBU. NEB SCH ×3 (11:35→20:36)
[2022-03-09] MEDS ORDERED: PIPERACILLIN/TAZOBACTAM 4.5 GM in IV NORMAL SALINE 100ML 100 ML IV SCH (12:00)
[2022-03-09] MEDS: PIPERACILLIN/TAZOBACTAM 4.5 GM in IV DEXTROSE 5% 100ML 100 ML IV SCH ×3 (12:27→23:14)
--- NOTE | 2022-03-09 13:17 | RAD ---
EXAM: CT angiography of the chest with intravenous contrast; chest CT without contrast. HISTORY: Shortness of breath. Pulmonary lesions on. TECHNIQUE: Computed tomographic images of the chest were obtained without and with intravenous contra st according to angiography protocol. Multiplanar reformatting was performed and three dimensional ma ximum intensity projection images were obtained. *One or more of the following individualized dose reduction techniques were utilized for this examina tion: 1. Automated exposure control. 2. Adjustment of the mA and/or kV according to patient size. 3. Use of iterative reconstruction technique. COMPARISON: Chest radiograph dated 03/08/2022. Chest CT dated 08/17/2021. FINDINGS: There is near complete consolidation of the right lower lobe with associated traversing air bronchograms and surrounding groundglass infiltrate. There is right hilar lymphadenopathy. There is attenuation of right lower lobe bronchi. There is no pleural effusion or pneumothorax. There is minim al left basilar atelectasis. There is partial consolidation of the right middle lobe and right middle lobe volume loss likely due to atelectasis. There is no convincing pulmonary embolism. Evaluation for distal right lower lobe pulmonary emboli is limited due to the aforementioned consolidation and respiratory motion. There is emphysema. The hear t is normal in size. The aorta is normal in caliber. There are enlarged mediastinal lymph nodes. Ther e is coronary artery calcification. There is degenerative change involving the spine. No acute or ricardo picious osseous lesion is seen. IMPRESSION: 1. Near-complete consolidation of the right lower lobe and partial consolidation of the right middle lobe. Follow-up to confirm resolution and exclude an underlying lesion. 2. No convincing pulmonary embolism. Evaluation of the right lower lobe pulmonary arteries is limited due to the aforementioned consolidation and respiratory motion. 3. Mediastinal and right hilar lymphadenopathy, likely reactive given the aforementioned findings. Fo llow-up following treatment of pneumonia is recommended to confirm resolution. 4. Emphysema. Electronically signed by: Salma Grissom MD (03/09/2022 1:15 PM) [id number]
[2022-03-09 15:00] VITALS: BP 100/56
--- NOTE | 2022-03-09 15:56 | NUR ---
SS following for discharge planning. SS reviewed pt chart and discussed with pt RN. Pt is from home with family and is currently requiring oxygen at two liters nasal canula. COVID19 negative. Pt on IV Azithromycin and IV Zosyn. SS will continue to follow for discharge planning.
[2022-03-09 19:00] VITALS: BP 106/56
[2022-03-09] MEDS: ACETAMINOPHEN 325 MG TABLET. PO PRN (19:32)
[2022-03-09] MEDS ORDERED: cefTRIAXone IV Push 1 GM VIAL. IVP SCH (21:00)
[2022-03-09] MEDS: AZITHROMYCIN 500 MG in IV NORMAL SALINE 250ML 250 ML IV SCH (21:39)
[2022-03-09 23:06] VITALS: BP 96/54
[2022-03-10] MEDS: guaiFENesin/CODEINE 100mg/10mg 5 ML LIQUID PO PRN (00:45)
[2022-03-10 03:07] VITALS: BP 110/62
[2022-03-10] MEDS: IV NORMAL SALINE 1000ML BAG 1,000 ML IV SCH ×2 (04:15→13:50)
[2022-03-10 05:40] LABS: BASO % 0 % (0-3); EOS % 0 % (0-3); HEMATOCRIT 30.9 % (36.0-47.0); HEMOGLOBIN 10.3 g/dL (12.0-15.5); LYMPH # 0.5 x10^3/uL (1.0-4.8); LYMPH % 7 % (24-48); MEAN CORPUSCULAR HEMOGLOBIN 29 pg (25-35); MEAN CORPUSCULAR HGB CONC 33 g/dL (31-37); MEAN CORPUSCULAR VOLUME 87 fL (79-100); MONO # 0.6 x10^3/uL (0.0-1.1); MONO % 7 % (0-9); NEUT # 7.1 x10^3/uL (1.8-7.7); NEUT % 86 % (31-73); PLATELET COUNT 170 x10^3/uL (140-400); RED BLOOD COUNT 3.56 x10^6/uL (3.50-5.40); WHITE BLOOD COUNT 8.2 x10^3/uL (4.0-11.0)
[2022-03-10] MEDS: PIPERACILLIN/TAZOBACTAM 4.5 GM in IV DEXTROSE 5% 100ML 100 ML IV SCH ×3 (05:50→17:48)
[2022-03-10 05:57] LABS: CALCIUM 8.1 mg/dL (8.5-10.1); CREATININE 0.8 mg/dL (0.6-1.0); GFR 86.3; MAGNESIUM 2.6 mg/dL (1.8-2.4); PHOSPHORUS 2.4 mg/dL (2.6-4.7); POTASSIUM 3.6 mmol/L (3.5-5.1)
[2022-03-10 07:00] VITALS: BP 101/49
[2022-03-10] MEDS: IPRATRPIUM/ALBUTEROL 0.5/2.5MG 3 ML NEBU. NEB SCH ×4 (07:34→20:00)
[2022-03-10] MEDS: LACTOBACILLUS RHAMNOSUS GG 1 CAPSULE. PO SCH ×3 (08:37→20:55)
[2022-03-10] MEDS: ENOXAPARIN 40 MG/0.4 ML SYRINGE. SQ SCH (08:38)
[2022-03-10 11:00] VITALS: BP 112/69
--- NOTE | 2022-03-10 14:18 | PDOC ---
[facility] PROGRESS NOTE Date of Service DOS: DATE: 03/10/22 TIME: 14:15 Chief Complaint Chief Complaint Assessment/Plan Acute hypoxic respiratory failure Right lower lobe pneumonia, possible gram-negative organisms Severe hypokalemia KILLIAN due to vasomotor nephropathy History of COPD History of CVA Added flutter valve and incentive spirometry for deep inspiration. O2 supplementation to maintain O2 saturations between 88 to 92% Continue empiric IV antibiotics Pending MRSA and Legionella urine antigen Lovenox for DVT prophylaxis Cardiac diet CODE STATUS full Discussed with RN and SW Disposition inpatient management as above DPOA: Daughter History of Present Illness History of Present Illness 66-year-old female with past medical history of COPD, CVA and migraines who comes in with shortness of breath that has been worsening for the past several days. Patient does smoke regularly at about a pack per day but she decreased to about 2 cigarettes/day and was not unable to tolerate her cigarettes anymore because she was having shortness of breath and productive cough. She does endorse brownish phlegm. Denies any nausea vomiting, fevers, chest pain, abdomi nal pain, nausea vomiting, dysuria, hematuria. Endorses generalized weakness and fatigue. She does not appear toxic but she does have short of breath while talking. Patient reportedly was found to have 87% when EMS arrived. She was not giving any steroids or treatments at the time. 03/10/2022 No acute events overnight. Patient seen examined bedside. Still on 2 L nasal cannula and saturating 99%. Clinically improved compared to yesterday. AF and VSS. Patient's chart, labs, images were reviewed and discussed with RN Vitals/I&O Vitals/I&O: Vital Signs Date Time Temp Pulse Resp B/P (MAP) Pulse Ox O2 Delivery O2 Flow Rate FiO2 03/10/22 12:18 99 Nasal Cannula 2.0 03/10/22 11:00 97.8 102 22 112/69 (83) 97.8 I & O 03/09/22 03/09/22 03/10/22 15:00 23:00 07:00 Intake Total 1239.05 ml 590 ml 1015 ml Balance 1239.05 ml 590 ml 1015 ml Physical Exam General: Alert, Oriented X3 Heart: Regular rate Abdomen: Normal bowel sounds Skin: No rashes Labs Labs: Laboratory Tests Test 03/10/22 04:30 White Blood Count 8.2 x10^3/uL (4.0-11.0) Red Blood Count 3.56 x10^6/uL (3.50-5.40) Hemoglobin 10.3 g/dL (12.0-15.5) Hematocrit 30.9 % (36.0-47.0) Mean Corpuscular Volume 87 fL (79-100) Mean Corpuscular Hemoglobin 29 pg (25-35) Mean Corpuscular Hemoglobin Concent 33 g/dL (31-37) Red Cell Distribution Width 14.0 % (11.5-14.5) Platelet Count 170 x10^3/uL (140-400) Neutrophils (%) (Auto) 86 % (31-73) Lymphocytes (%) (Auto) 7 % (24-48) Monocytes (%) (Auto) 7 % (0-9) Eosinophils (%) (Auto) 0 % (0-3) Basophils (%) (Auto) 0 % (0-3) Neutrophils # (Auto) 7.1 x10^3/uL (1.8-7.7) Lymphocytes # (Auto) 0.5 x10^3/uL (1.0-4.8) Monocytes # (Auto) 0.6 x10^3/uL (0.0-1.1) Eosinophils # (Auto) 0.0 x10^3/uL (0.0-0.7) Basophils # (Auto) 0.0 x10^3/uL (0.0-0.2) Sodium Level 141 mmol/L (136-145) Potassium Level 3.6 mmol/L (3.5-5.1) Chloride Level 106 mmol/L (98-107) Carbon Dioxide Level 27 mmol/L (21-32) Anion Gap 8 (6-14) Blood Urea Nitrogen 17 mg/dL (7-20) Creatinine 0.8 mg/dL (0.6-1.0) Estimated GFR (Cockcroft-Gault) 86.3 Glucose Level 107 mg/dL (70-99) Calcium Level 8.1 mg/dL (8.5-10.1) Phosphorus Level 2.4 mg/dL (2.6-4.7) Magnesium Level 2.6 mg/dL (1.8-2.4) Assessment and Plan Assessmemt and Plan Problems Medical Problems: (1) Hypokalemia Status: Acute (2) Pneumonia Status: Acute (3) Respiratory failure with hypoxia Status: Acute (4) Sepsis Status: Acute Comment Review of Relevant I have reviewed the following items adenike (where applicable) has been applied. Medications: Current Medications Medications (Trade) Dose Ordered Sig/Jd Route PRN Reason Start Time Stop Time Status Last Admin Dose Admin Azithromycin 500 mg/Sodium Chloride 250 ml @ 250 mls/hr QHS IV 03/09/22 21:00 03/09/22 21:39 Guaifenesin/ Codeine Phosphate (Robitussin Ac) 5 ml PRN Q6HRS PRN PO COUGH 03/09/22 23:30 03/10/22 00:45 Justifications for Admission Other Justification Pneumonia LISSY GALVEZ MD March 10, 2022 14:18
[2022-03-10 15:00] VITALS: BP 100/61
[2022-03-10 19:00] VITALS: BP 101/47
[2022-03-10] MEDS: NYSTATIN 100,000 UNITS/ML 5 ML ORAL.SUSP. SWSW SCH ×2 (20:52→20:55)
[2022-03-10] MEDS: AZITHROMYCIN 500 MG in IV NORMAL SALINE 250ML 250 ML IV SCH (20:55)
[2022-03-10 23:10] VITALS: BP 106/61
[2022-03-11] MEDS: PIPERACILLIN/TAZOBACTAM 4.5 GM in IV DEXTROSE 5% 100ML 100 ML IV SCH ×4 (00:03→17:16)
[2022-03-11] MEDS: ACETAMINOPHEN 325 MG TABLET. PO PRN (00:05)
[2022-03-11] MEDS: guaiFENesin/CODEINE 100mg/10mg 5 ML LIQUID PO PRN ×3 (00:05→15:06)
[2022-03-11] MEDS: IV NORMAL SALINE 1000ML BAG 1,000 ML IV SCH ×3 (00:15→17:18)
[2022-03-11 03:14] VITALS: BP 101/49
[2022-03-11 05:57] LABS: BASO % 0 % (0-3); EOS % 1 % (0-3); HEMATOCRIT 29.6 % (36.0-47.0); HEMOGLOBIN 9.7 g/dL (12.0-15.5); LYMPH # 1.3 x10^3/uL (1.0-4.8); LYMPH % 17 % (24-48); MEAN CORPUSCULAR HEMOGLOBIN 29 pg (25-35); MEAN CORPUSCULAR HGB CONC 33 g/dL (31-37); MEAN CORPUSCULAR VOLUME 87 fL (79-100); MONO % 13 % (0-9); NEUT # 5.3 x10^3/uL (1.8-7.7); NEUT % 69 % (31-73); PLATELET COUNT 184 x10^3/uL (140-400); RED CELL DISTRIBUTION WIDTH 14.2 % (11.5-14.5); WHITE BLOOD COUNT 7.6 x10^3/uL (4.0-11.0)
[2022-03-11 05:59] LABS: CALCIUM 7.9 mg/dL (8.5-10.1); CREATININE 0.8 mg/dL (0.6-1.0); GFR 86.3; MAGNESIUM 2.1 mg/dL (1.8-2.4); POTASSIUM 3.2 mmol/L (3.5-5.1)
[2022-03-11 07:00] VITALS: BP 120/64
[2022-03-11] MEDS: IPRATRPIUM/ALBUTEROL 0.5/2.5MG 3 ML NEBU. NEB SCH ×4 (07:56→20:53)
[2022-03-11] MEDS: ENOXAPARIN 40 MG/0.4 ML SYRINGE. SQ SCH (08:57)
[2022-03-11 11:27] VITALS: BP 120/57
[2022-03-11] MEDS: POTASSIUM CHLORIDE 20 MEQ TABLET.ER. PO SCH ×2 (11:55→20:27)
[2022-03-11] MEDS: NYSTATIN 100,000 UNITS/ML 5 ML ORAL.SUSP. SWSW SCH ×3 (12:54→20:28)
[2022-03-11 14:58] VITALS: BP 112/69
[2022-03-11] MEDS ORDERED: guaiFENesin ORAL 200 MG/10 ML LIQUID. PO PRN (16:15)
[2022-03-11 19:41] VITALS: BP 133/77
[2022-03-11] MEDS: guaiFENesin ORAL 200 MG/10 ML LIQUID. PO PRN (20:26)
[2022-03-11] MEDS: LACTOBACILLUS RHAMNOSUS GG 1 CAPSULE. PO SCH (20:27)
[2022-03-11] MEDS: METOPROLOL TART IMMED RELEASE 25 MG TABLET. PO SCH (20:28)
[2022-03-11] MEDS: AZITHROMYCIN 500 MG in IV NORMAL SALINE 250ML 250 ML IV SCH (20:29)
[2022-03-11 23:11] VITALS: BP 93/46
[2022-03-12] MEDS: PIPERACILLIN/TAZOBACTAM 4.5 GM in IV DEXTROSE 5% 100ML 100 ML IV SCH ×4 (01:01→11:58)
[2022-03-12 03:40] VITALS: BP 127/67
[2022-03-12] MEDS: IV NORMAL SALINE 1000ML BAG 1,000 ML IV SCH (05:40)
[2022-03-12 06:58] LABS: BASO % 0 % (0-3); EOS % 0 % (0-3); HEMATOCRIT 34.2 % (36.0-47.0); HEMOGLOBIN 11.1 g/dL (12.0-15.5); LYMPH # 1.6 x10^3/uL (1.0-4.8); LYMPH % 14 % (24-48); MEAN CORPUSCULAR HEMOGLOBIN 28 pg (25-35); MEAN CORPUSCULAR HGB CONC 33 g/dL (31-37); MEAN CORPUSCULAR VOLUME 88 fL (79-100); MONO # 1.2 x10^3/uL (0.0-1.1); MONO % 11 % (0-9); NEUT # 8.5 x10^3/uL (1.8-7.7); NEUT % 75 % (31-73); PLATELET COUNT 233 x10^3/uL (140-400); RED CELL DISTRIBUTION WIDTH 14.7 % (11.5-14.5); WHITE BLOOD COUNT 11.4 x10^3/uL (4.0-11.0)
[2022-03-12 07:00] VITALS: BP 125/64
[2022-03-12 07:10] LABS: CALCIUM 8.4 mg/dL (8.5-10.1); CREATININE 0.8 mg/dL (0.6-1.0); GFR 86.3; POTASSIUM 3.9 mmol/L (3.5-5.1)
--- NOTE | 2022-03-12 07:49 | RAD ---
EXAM: Chest, single view. HISTORY: Pneumonia. COMPARISON: 03/09/2022 FINDINGS: A frontal view of the chest is obtained. There has been no change in right middle and lower lobe consolidation and left lower lobe atelectasis or interstitial infiltrate and suspected small bi lateral pleural effusions. There is a stable cardiac silhouette. There is no pneumothorax. IMPRESSION: No change in right middle and lower lobe consolidation and left lower lobe atelectasis or infiltrate with small pleural effusions. Follow-up to confirm resolution. Electronically signed by: Salma Grissom MD (03/12/2022 7:47 AM) [id number]
[2022-03-12] MEDS: IPRATRPIUM/ALBUTEROL 0.5/2.5MG 3 ML NEBU. NEB SCH ×2 (07:55→10:40)
[2022-03-12] MEDS ORDERED: AZIT500T PO (08:25)
[2022-03-12] MEDS ORDERED: AMOX1TAB61 PO (08:25)
[2022-03-12] MEDS ORDERED: GUAI100L12 PO (08:25)
--- NOTE | 2022-03-12 08:28 | DISCH ---
DISCHARGE INSTRUCTIONS Condition on Discharge Condition on Discharge: Stable Activity After Discharge Activity Instructions for Disc: Resume previous activity, Other ROM activity Lifting Instructions after Dis: No heavy lifting, No pulling or pushing, Do not lift >10 pounds Exercise Instruction after Dis: Progress as tolerated Driving Instructions after Dis: Do not drive, Do not drive today, Other, see below Weight Bearing Status after Di: No restrictions, Other, see below Diet after Discharge Diet after Discharge: Cardiac Diet Texture: Regular Liquid Texture: Thin Liquid Swallowing Supervision: None needed Checks after Discharge Checks after discharge: Check blood press - daily Follow-Up Follow up with: PCP within 2 weeks of discharge Treatment/Equipment after DC Adaptive Equipment Issued: None Discharge Respiratory Equipmen: Oxygen LISSY GALVEZ MD March 12, 2022 08:28
[2022-03-12] MEDS: NYSTATIN 100,000 UNITS/ML 5 ML ORAL.SUSP. SWSW SCH ×2 (08:48→12:21)
[2022-03-12] MEDS: METOPROLOL TART IMMED RELEASE 25 MG TABLET. PO SCH (08:49)
[2022-03-12] MEDS: LACTOBACILLUS RHAMNOSUS GG 1 CAPSULE. PO SCH (08:49)
[2022-03-12] MEDS: ENOXAPARIN 40 MG/0.4 ML SYRINGE. SQ SCH (08:49)
[2022-03-12 11:00] VITALS: BP 117/51
[2022-03-12] MEDS: guaiFENesin ORAL 200 MG/10 ML LIQUID. PO PRN (12:28)
--- NOTE | 2022-03-12 14:50 | NUR ---
Discharge Note: GRISELDA KENNEY Discharge instructions and discharge home medications reviewed with Patient and a copy given. All questions have been answered and understanding verbalized. The following instructions and handouts were given: follow up instructions, medication education, oxygen education Discontinued lines and drains: 20 gauge right FA, tip intact. patient tolerated well. Patient discharged to home with self care via family.
== END 2022-03-12 14:45 | disposition home or self-care (01) | DRG 871 ==
LOC: ER 21:30 → 5 NORTH 22:50
PROVIDERS: ADMIT Internal Medicine; ATTEND Internal Medicine
DX: A41.9 Sepsis, unspecified organism (principal); J18.9 Pneumonia, unspecified organism; J96.01 Acute respiratory failure with hypoxia; N17.0 Acute kidney failure with tubular necrosis; J44.0 Chronic obstructive pulmonary disease with (acute) lower respiratory infection; Z20.822 Contact with and (suspected) exposure to COVID-19; G43.909 Migraine, unspecified, not intractable, without status migrainosus; F17.210 Nicotine dependence, cigarettes, uncomplicated; E87.6 Hypokalemia; Z86.73 Personal history of transient ischemic attack (TIA), and cerebral infarction without residual deficits; Z79.899 Other long term (current) drug therapy
CPT/HCPCS: 36415; 71045; 71250; 71275; 80048; 80053; 83605; 83735; 83880; 84100; 84145; 84484; 85007; 85025; 85379; 87040; 87428; 87449; 87641; 93005; 94618; 94640; 94667; 94668; 96365; 96368; 96375; 99406; G0238; J0456; J0696; J1650; J2405; J2543; J2930; J3480; J7030; J7050; J7060; Q9967; 99291-25; G0378